=== PATIENT | female | born 1945 | race Caucasian/White ===

== ENCOUNTER → 2022-04-09 | Outpatient (CLI) | payer MEDICARE ==
--- NOTE | 2022-04-09 09:43 | MM ---
Reason for Exam: Screening (asymptomatic). Patient History: Menarche at age 14. First Full-Term at age 23. Postmenopausal. Risk Values: Majo 5 year model risk: 1.6%. NCI Lifetime model risk: 3.7%. Tissue Density: There are scattered fibroglandular densities. Findings: Analyzed By CAD. Occasional small scattered benign-appearing round calcifications bilaterally. Benign-appearing bilateral axillary lymph nodes are present. There is no suspicious group of microcalcifications or suspicious mass in either breast. Overall Assessment: Benign, BI-RAD 2 Management: Screening Mammogram of both breasts in 1 year. A clinical breast exam by your physician is recommended on an annual basis and results should be correlated with mammographic findings. Electronically signed and approved by: Kashif Oconnell M.D.
--- NOTE | 2022-04-09 10:20 | BD ---
EXAMINATION TYPE: Axial Bone Density DATE OF EXAM: 04/09/2022 COMPARISON: NONE CLINICAL HISTORY: 76 years year old Female. ICD-10 CODE: M81.0 Height: 62.5 Weight: 191 FRAX RISK QUESTIONS: Alcohol (3 or more units per day): NO Family History (Parent hip fracture): NO Glucocorticoids (More than 3mos): NO History of Fracture in Adulthood: NO Secondary Osteoporosis: 1. Type 1 Diabetes: NO 2. Hyperthyroidism: NO 3. Menopause before 45: YES 4. Malnutrition: NO 5. Chronic liver disease: NO Rheumatoid Arthritis: NO Current Tobacco Use: NO RISK FACTORS HISTORY OF: Hip Fracture (Right/Left): NO Spine Fracture: NO History of Wrist Fracture: NO Surgery to Spine/Hip(right/left)/Wrist (right/left): NO Family History of Osteoporosis: NO Active: YES Diet low in dairy products/other sources of calcium: YES Postmenopausal woman: YES Take estrogen and/or progesterone medications: NO Lost more than 2 inches in height since high school: NO Frequent falls: NO Poor Health: NO Hyperparathyroidism: NO Adrenal Insufficiency: NO MEDICATIONS: Prednisone or other steroids: NO Thyroid Medications: NO Osteoporosis Medications: ALENDRONATE SODIUM WEEKLY How Long: PAST 2 YEARS Additional Medications: LOVASTATIN, MULTI VIT., VIT D EXAM MEASUREMENTS: Bone mineral densitometry was performed using the sliceX System. Bone mineral density as measured about the Lumbar spine is: ----- L1-L4(G/cm2): 1.081 T Score Values are as follows: ----- L1: -1.6 ----- L2: -0.5 ----- L3: -1.4 ----- L4: -0.2 ----- L1-L4: -0.8 BASELINE STUDY Bone mineral density about the R hip (g/cm2): 0.772 Bone mineral density about the L hip (g/cm2): 0.771 T Score values are as follows: -----R Neck: -1.9 -----L Neck: -1.9 -----R Total: -1.1 -----L Total: -0.8 BASELINE STUDY FRAX%s: The graph provided illustrates a 11.8% chance for a major osteoporotic fx and a 2.8% chance f or the hips probability for fx in 10 years time. IMPRESSION: Osteopenia (T Score between -2.5 and -1). There is slightly increased risk of fracture and the patient may be considered for treatment. Re-Screen 2-5 years. NOTE: T-SCORE=SD OF THE YOUNG ADULT MEAN.
== END | disposition home or self-care (01) ==
LOC: RADMAMWWP 06:52
PROVIDERS: ATTEND Family Medicine
DX: Z12.31 Encounter for screening mammogram for malignant neoplasm of breast (principal); M85.89 Other specified disorders of bone density and structure, multiple sites; Z78.0 Asymptomatic menopausal state
CPT/HCPCS: 77063; 77067; 77080

== ENCOUNTER → 2023-03-03 | Outpatient (CLI) | payer MEDICARE ==
--- NOTE | 2023-03-03 13:09 | CA ---
Exercise Stress Test Report Name: Marilyn Thompson Exam Date: 03/03/2023 10:51 Exam Location: [place] Stress Ht (in): 63 Wt (lb): 190 BSA: 1.89 Ordering Phys: Carlos Rai DO Referring Phys: Seema Lock PAC Technologist: Clem Jin Age: 77 Gender: F : 1945 Procedure CPT: Indications: R07.9, R06.02, R53.83 ICD-10 Codes: Patient History: Chest pressure and short of breath Medications: Meds past 24 hrs: Pretest Chest Pain: STRESS TEST Shiv Protocol Exercise Duration (min:sec): 04:[address] Depressions (mm): Angina Score: Caldwell Score: Resting HR (bpm): 74 Peak HR (bpm): 136 Resting BP (mmHg): 137 / 78 Peak BP (mmHg): 155 / 71 MPHR: 145 Target HR: 123 % MPHR: 94 METS: 6.8 Total Dose: Peak Dose: Atropine: Double Product: 50225 BP Response: Stress Termination: Reached target heart rate Stress Symptoms: Dizziness Stress Summary: The patient's target heart rate was achieved, The hemodynamic response to exercise was normal ECG ANALYSIS Resting ECG: Sinus rhythm. Normal conduction. No arrhythmias. Normal repolarization. Stress ECG: No ECG evidence of ischemia with exercise. CONCLUSIONS 1. Decrease exercise tolerance 2. Normal electrocardiographic response to exercise with no evidence of stress induced ischemia. Dr. Cameron Roe MD (Electronically Signed) Final Date: 03 March 2023 13:08
== END | disposition home or self-care (01) ==
LOC: RADNMMAIN 10:24
PROVIDERS: ATTEND Family Medicine
DX: R07.9 Chest pain, unspecified (principal); R06.02 Shortness of breath; R53.83 Other fatigue
CPT/HCPCS: 93017

== ENCOUNTER → 2024-04-11 | Outpatient (CLI) | payer MEDICARE ==
--- NOTE | 2024-04-12 10:33 | MM ---
Reason for Exam: Screening (asymptomatic). Last mammogram was performed 2 year(s) and 0 month(s) ago. Patient History: Menarche at age 14. First Full-Term at age 23. Postmenopausal. Risk Values: Majo 5 year model risk: 1.6%. NCI Lifetime model risk: 3.2%. Prior Study Comparison: 04/09/2022 Bilateral MG 3D screening mammo w/cad, [facility]. Tissue Density: There are scattered areas of fibroglandular density. Findings: Analyzed By CAD. There is no suspicious group of microcalcifications or new suspicious mass in either breast. Tiny chronic nodularity upper outer margin left breast. Benign-appearing calcifications. Overall Assessment: Benign, BI-RAD 2 Management: Screening Mammogram of both breasts in 1 year. . Patient should continue monthly self-breast exams. A clinical breast exam by your physician is recommended on an annual basis. This exam should not preclude additional follow-up of suspicious palpable abnormalities. Note on Majo scores and lifetime risk: 1. A Majo score greater than 3% is considered moderate risk. If this is the case, consider specialist referral to assess eligibility for a risk reducing agent. 2. If overall lifetime risk for the development of breast cancer is 20% or higher, the patient may qualify for future screening with alternating mammogram and breast MRI. Electronically signed and approved by: Abel Mancera M.D. Radiologis
--- NOTE | 2024-04-14 16:41 | BD ---
EXAMINATION TYPE: Axial Bone Density DATE OF EXAM: 04/11/2024 CLINICAL HISTORY: 78 years old Female. ICD-10 CODE: M81.0 Osteoporosis Height: 62 Weight: 162 FRAX RISK QUESTIONS: Secondary Osteoporosis: yes 3. Menopause before 45: yes RISK FACTORS HISTORY OF: MEDICATIONS: bp meds, vit d and multivitamin, statin for cholesterol, Osteoporosis Medications: yes, fosomax weekly for 4 yrs EXAM MEASUREMENTS: Bone mineral densitometry was performed using the [employer] System. Bone mineral density as measured about the Lumbar spine is: ----- L1-L4(G/cm2): 1.098 T Score Values are as follows: ----- L1: -2.1 ----- L2: -1.0 ----- L3: -0.5 ----- L4: 0.4 ----- L1-L4: -0.7 Z Score Values are as follows: ----- L1: -0.6 ----- L2: 0.5 ----- L3: 1.0 ----- L4: 1.9 ----- L1-L4: 0.8 Bone mineral density has: Increased 1.6% since study of: 04.09.2022 Bone mineral density about the R hip (g/cm2): 0.879 Bone mineral density about the L hip (g/cm2): 0.896 T Score values are as follows: -----R Neck: -1.5 -----L Neck: -1.9 -----R Total: -1.0 -----L Total: -1.0 Z Score values are as follows: -----R Neck: 0.3 -----L Neck: -0.1 -----R Total: 0.6 -----L Total: 0.7 Bone mineral density has: Increased 0.2% since study of: 04.09.2022 FRAX%s: The graph provided illustrates a 13.3% chance for a major osteoporotic fx and a 3.4% chance f or the hips probability for fx in 10 years time. IMPRESSION: Osteopenia (T Score between -2.5 and -1). There is slightly increased risk of fracture and the patient may be considered for treatment. Re-Screen 2-5 years. NOTE: T-SCORE=SD OF THE YOUNG ADULT MEAN.
== END | disposition home or self-care (01) ==
LOC: RADMAMWWP 07:51
PROVIDERS: ATTEND Family Medicine
DX: Z12.31 Encounter for screening mammogram for malignant neoplasm of breast (principal); M81.0 Age-related osteoporosis without current pathological fracture; Z78.0 Asymptomatic menopausal state; R92.323 Mammographic fibroglandular density, bilateral breasts
CPT/HCPCS: 77063; 77067; 77080